=== PATIENT | female | born 1985 | race Caucasian/White ===

== ENCOUNTER 2017-07-03 11:36 | Inpatient (IN) | payer OTHER ==
[2017-07-03 12:27] VITALS: BMI 27.2
--- NOTE | 2017-07-03 14:25 | HP ---
CIWA Score - CIWA Score Nausea/Vomitin-No Nausea/No Vomiting Muscle Tremors: 4-Moderate,w/Arms Extend Anxiety: 4-Mod. Anxious/Guarded Agitation: 4-Moderately Restless Paroxysmal Sweats: 1-Minimal Palms Moist Orientation: 0-Oriented Tacttile Disturbances: 3-Moderate Itch/Numb/Burn Auditory Disturbances: 0-None Visual Disturbances: 0-None Headache: 0-None Present CIWA-Ar Total Score: 16 Admission ROS S - HPI Chief Complaint: WITHDRAWAL SX FROM ALCOHOL Allergies/Adverse Reactions: Allergies Allergy/AdvReac Type Severity Reaction Status Date / Time chlordiazepoxide Allergy Severe Itching Verified 07/03/17 13:05 [From Librium] History of Present Illness: 32 Y/O FEMALE WITH A HX OF ALCOHOL,KONOPIN, COCAINE DEPENDENCE ON MMTP SEEKING DETOX [place]. Exam Limitations: No Limitations - Ebola screening Have you traveled outside of the country in the last 21 days: No (N) Have you had contact with anyone from an Ebola affected area: No Have you been sick,other than usual withdrawal symptoms: No Do you have a fever: No - Review of Systems Constitutional: Chills, Loss of Appetite, Night Sweats EENT: reports: Tearing, Nose Congestion, Dental Problems (UPPER DENTURES) Respiratory: reports: Shortness of Breath (HX ASTHMA), Wheezing Cardiac: reports: Lightheadedness GI: reports: Constipated, Diarrhea, Nausea, Poor Appetite, Poor Fluid Intake, Vomiting : reports: Frequency Musculoskeletal: reports: Back Pain, Joint Pain, Muscle Pain Integumentary: reports: No Symptoms Reported Neuro: reports: Headache, Numbness, Seizure (DRUG WITHDRAWALS RELATED), Tingling , Tremors, Unsteady Gait (WALKS WITH A LIMP--S/P SURGERY LEFT FEMUR IN OCTOBER 2016 DUE TO FX.), Dizziness Endocrine: reports: No Symptoms Reported Hematology: reports: No Symptoms Reported Psychiatric: reports: Orientated x3, Anxious, Depressed (HX BIPOLAR DISORDER) Other Systems: Reviewed and Negative Patient History - Patient Medical History Hx Anemia: No Hx Asthma: Yes Hx Chronic Obstructive Pulmonary Disease (COPD): No Hx Cardiac Disorders: No Hx Hypertension: No Hx Hypercholesterolemia: No Hx Seizures: Yes (drug related-last episode was in 2014) Hx Diabetes: No Hx Gastrointestinal Disorders: No Hx Genitourinary Disorders: No Hx Sexually Transmitted Disorders: Yes (vaginal warts) Hx Renal Disease (ESRD): No Hx Thyroid Disease: No Hx Human Immunodeficiency Virus (HIV): No (NEGATIVE HX) Hx Depression: Yes Hx Suicide Attempt: No (WRIST/LEG CUTTING IN 2012;DENIES S/I TODAY.) Hx Schizophrenia: No - Patient Surgical History Past Surgical History: Yes Hx Neurologic Surgery: No Hx Cataract Extraction: No Hx Cardiac Surgery: No Hx Lung Surgery: No Hx Breast Surgery: No Hx Breast Biopsy: No Hx Abdominal Surgery: No ( x4) Hx Appendectomy: No Hx Cholecystectomy: No Hx Genitourinary Surgery: No Hx Section: No Hx Orthopedic Surgery: Yes (fx, left femur (fall) in 10/2016) Anesthesia Reaction: No - PPD History Previous Implant?: Yes Documented Results: Negative w/o proof Implanted On Prior [facility] Admission?: No PPD to be Administered?: Yes - Reproductive History Patient is a Female of Child Bearing Age (11 -55 yrs old): Yes Last Menstrual Period: 06/14/17 Patient : No - Smoking Cessation Smoking history: Current every day smoker Have you smoked in the past 12 months: Yes Aproximately how many cigarettes per day: 10 Hx Chewing Tobacco Use: No Initiated information on smoking cessation: Yes 'Breaking Loose' booklet given: 07/03/17 - Substance & Tx. History Hx Alcohol Use: Yes (BEER) Hx Substance Use: Yes (COCAINE/XANAX/KLONOPIN) Substance Use Type: Alcohol, Cocaine, Tranquilizers Hx Substance Use Treatment: Yes (CURRENTLY IN [facility]) - Substances Abused Cocaine Route: Injection Frequency: Daily Amount used: $40-50 Age of first use: 19 Date of Last Use: 07/02/17 Alcohol-beer Route: Oral Frequency: Daily Amount used: 4 (24 oz.) Age of first use: 18 Date of Last Use: 07/03/17 Xanax/or Klonopin Route: Oral Frequency: Daily Amount used: 8-12 mg. Age of first use: 22 Date of Last Use: 07/03/17 Family Disease History - Family Disease History Family History: Denies Admission Physical Exam BHS - Vital Signs Vital Signs: Vital Signs - 24 hr 07/03/17 12:24 Temperature 96.1 F L Pulse Rate 78 Respiratory 18 Rate Blood Pressure 117/82 - Physical General Appearance: Yes: Moderate Distress, Irritable, Anxious HEENTM: Yes: EOMI, Normocephalic, CONY, Pharynx Normal Respiratory: Yes: Chest Non-Tender, Lungs Clear, Normal Breath Sounds, No Respiratory Distress Neck: Yes: No masses,lesions,Nodules, Supple, Trachea in good position Breast: Yes: Breast Exam Deferred Cardiology: Yes: Regular Rhythm, Regular Rate, S1, S2 Abdominal: Yes: Normal Bowel Sounds, Non Tender, Soft Genitourinary: Yes: Other (N/C) Back: Yes: Within Normal Limits Musculoskeletal: Yes: full range of Motion, Gait Steady Extremities: Yes: Normal Range of Motion, Non-Tender 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, Fully Oriented, Alert Integumentary: Yes: Dry, Warm Lymphatic: Yes: Within Normal Limits - Diagnostic (1) Methadone maintenance therapy patient Current Visit: Yes Status: Chronic (2) Sedative, hypnotic or anxiolytic dependence with withdrawal, uncomplicated Current Visit: Yes Status: Acute (3) Alcohol dependence with uncomplicated withdrawal Current Visit: Yes Status: Acute (4) Cocaine dependence, uncomplicated Current Visit: Yes Status: Acute (5) Withdrawal seizures Current Visit: Yes Status: Suspected Qualifiers: Complication of substance-induced condition: uncomplicated Qualified Code(s ): F19.230 - Other psychoactive substance dependence with withdrawal, uncomplicated (6) History of genital warts Current Visit: Yes Status: Chronic (7) Asthma Current Visit: Yes Status: Chronic Qualifiers: Asthma severity: unspecified severity Asthma persistence: unspecified Asthma complication type: uncomplicated Qualified Code(s): J45.909 - Unspecified asthma, uncomplicated Cleared for Admission [facility] - Detox or Rehab [facility] Level of Care: Medically Managed Detox Regimen/Protocol: Valium [facility] Breath Alcohol Content Breath Alcohol Content: 0 Urine Pregancy Test - Result Urine Test Results: Negative- NO Line Present Urine Drug Screen - Results Drug Screen Negative: No Urine Drug Screen Results: AVIVA-Cocaine, BZO-Benzodiazepines, MTD-Methadone, OXY- Oxycodone
[2017-07-03] MEDS ORDERED: MAG HYDROX/AL HYDROX/SIMETH 30 ML UNIT-DOSE CUP PO PRN (14:45)
[2017-07-03] MEDS ORDERED: MAGNESIUM CITRATE 300 ML BOTTLE PO PRN (14:45)
[2017-07-03] MEDS ORDERED: guaiFENesin/D-METHORPHAN HB 10 ML UNIT-DOSE CUPS PO PRN (14:45)
[2017-07-03] MEDS ORDERED: MENTHOL/PHENOL 1 EACH UD MM PRN (14:45)
[2017-07-03] MEDS ORDERED: LOPERAMIDE HCL 2 MG CAPSULE PO PRN (14:45)
[2017-07-03] MEDS ORDERED: NICOTINE POLACRILEX 2 MG GUM BUC PRN (14:45)
[2017-07-03] MEDS ORDERED: MAGNESIUM HYDROX 2400MG/30ML ORAL SUSPENSION 30 ML CUP PO PRN (14:45)
[2017-07-03] MEDS ORDERED: IBUPROFEN 400 MG TABLET (FP) PO PRN (14:45)
[2017-07-03] MEDS ORDERED: P-EPHED 60MG/TRIPROLIDI 2.5MG TABLET PO PRN (14:45)
[2017-07-03] MEDS ORDERED: diazePAM 5 MG TABLET PO ONE (14:45)
[2017-07-03] MEDS ORDERED: ALBUTEROL SO4 18 GM HFA INHALER IH PRN (14:49)
[2017-07-03] MEDS: NICOTINE 14 MG/24 HOURS TOPICAL PATCH TD SCH (17:03)
[2017-07-03 17:34] LABS: MCH 29.2 pg (25.7-33.7); MEAN CELL VOLUME 91.1 fl (80-96); MEAN PLT VOLUME 9.2 fl (7.5-11.1); PLATELET COUNT 225 K/MM3 (134-434); RDW 19.5 % (11.6-15.6)
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
[2017-07-03 17:47] LABS: ALBUMIN 3.9 g/dl (3.4-5.0); ANION GAP 8 (8-16); BILIRUBIN,TOTAL 0.7 mg/dL (0.2-1.0); CALCIUM 9.2 mg/dL (8.5-10.1); CO2 27 mmol/L (21-32); GLUCOSE,RANDOM 99 mg/dL (74-106); SGOT/AST 45 U/L (15-37); SGPT/ALT 61 U/L (12-78); TOT PROT 8.2 g/dl (6.4-8.2)
[2017-07-03 17:48] LABS: ALK PHOS 253 U/L (45-117)
[2017-07-03 21:30] LABS: URINE APPEARANCE SLCLOUDY; URINE BILIRUBIN NEGATIVE (NEGATIVE); URINE BLOOD NEGATIVE (NEGATIVE); URINE COLOR YELLOW; URINE GLUCOSE (UA) NEGATIVE (NEGATIVE); URINE KETONE NEGATIVE (NEGATIVE); URINE NITRITE NEGATIVE (NEGATIVE); URINE PROTEIN NEGATIVE (NEGATIVE)
[2017-07-03 21:31] LABS: URINE LEUK ESTERASE 3+ (NEGATIVE)
[2017-07-03 21:40] LABS: URINE MUCUS MODERATE; URINE RBC 5 /hpf (0-3); URINE WBC 28 /hpf (3-5)
[2017-07-03] MEDS: busPIRone HCL 10 MG TABLET (FP) PO SCH (22:16)
[2017-07-03] MEDS: diazePAM 5 MG TABLET PO SCH (22:16)
[2017-07-03] MEDS: THIAMINE HCL 100 MG TABLET (FP) PO SCH (22:16)
[2017-07-03] MEDS: MONTELUKAST NA 10 MG TABLET PO SCH (22:17)
[2017-07-03] MEDS: ZOLPIDEM TARTRATE 5 MG TABLET PO PRN (22:17)
[2017-07-03 22:52] LABS: URINE LEUK ESTERASE 2+ (NEGATIVE)
[2017-07-04] MEDS ORDERED: METHADONE HCL 40 MG DISPERSABLE TABLET ONE (04:51)
[2017-07-04] MEDS ORDERED: METHADONE HCL 10 MG TABLET ONE (04:51)
[2017-07-04] MEDS: diazePAM 5 MG TABLET PO SCH ×3 (05:24→22:22)
[2017-07-04] MEDS: METHADONE 80 MG, METHADONE 30 MG PO SCH (05:24)
[2017-07-04] MEDS ORDERED: METHADONE HCL 10 MG TABLET PO SCH (06:00)
[2017-07-04] MEDS: busPIRone HCL 10 MG TABLET (FP) PO SCH ×2 (10:49→22:22)
[2017-07-04] MEDS: PRENATAL VITAMINS W/ FOLIC ACID TABLET (FP) PO SCH (10:49)
[2017-07-04] MEDS: NICOTINE 14 MG/24 HOURS TOPICAL PATCH TD SCH (10:49)
--- NOTE | 2017-07-04 11:00 | PN ---
S CIWA - CIWA Score Nausea/Vomitin Muscle Tremors: 2 Anxiety: 3 Agitation: 2 Paroxysmal Sweats: 3 Orientation: 0-Oriented Tacttile Disturbances: 2-Mild Itch/Numbness/Burn Auditory Disturbances: 0-None Visual Disturbances: 0-None Headache: 0-None Present CIWA-Ar Total Score: 14 S Progress Note (SOAP) Subjective: interrupted sleep, sweats, muscle cramps, vag.yeast infection Objective: 07/04/17 10:58 Vital Signs Temperature 97.7 F 07/04/17 10:00 Pulse Rate 79 07/04/17 10:00 Respiratory Rate 18 07/04/17 10:00 Blood Pressure 117/83 07/04/17 10:00 O2 Sat by Pulse Oximetry (%) Laboratory Tests 07/03/17 07/03/17 07/03/17 15:00 15:00 15:00 WBC 5.0 RBC 3.95 Hgb 11.5 Hct 36.0 MCV 91.1 MCH 29.2 MCHC 32.0 RDW 19.5 H Plt Count 225 MPV 9.2 Sodium 141 Potassium 3.7 Chloride 106 Carbon Dioxide 27 Anion Gap 8 BUN 9 Creatinine 1.0 Creat Clearance w eGFR > 60 Random Glucose 99 Calcium 9.2 Total Bilirubin 0.7 AST 45 H ALT 61 Alkaline Phosphatase 253 H Total Protein 8.2 Albumin 3.9 Urine Color Urine Appearance Urine pH Ur Specific [place] Urine Protein Urine Glucose (UA) Urine Ketones Urine Blood Urine Nitrite Urine Bilirubin Urine Urobilinogen Ur Leukocyte Esterase Urine WBC (Auto) Urine RBC (Auto) Ur Epithelial Cells Urine Mucus RPR Titer Nonreactive 07/03/17 21:00 WBC RBC Hgb Hct MCV MCH MCHC RDW Plt Count MPV Sodium Potassium Chloride Carbon Dioxide Anion Gap BUN Creatinine Creat Clearance w eGFR Random Glucose Calcium Total Bilirubin AST ALT Alkaline Phosphatase Total Protein Albumin Urine Color Yellow Urine Appearance Slcloudy Urine pH 6.0 Ur Specific [place] 1.016 Urine Protein Negative Urine Glucose (UA) Negative Urine Ketones Negative Urine Blood Negative Urine Nitrite Negative Urine Bilirubin Negative Urine Urobilinogen 2.0 H Ur Leukocyte Esterase 2+ H Urine WBC (Auto) 28 Urine RBC (Auto) 5 Ur Epithelial Cells Few Urine Mucus Moderate RPR Titer pt aox 3 in nad ambulating Assessment: 07/04/17 10:59 jose vanessamat's yeast infection -vaginal muscle cramps Plan: cont. detox increase fluids diflucan 150mg x 1 flexeril tid.
[2017-07-04] MEDS ORDERED: FLUCONAZOLE 50 MG TABLET PO ONE (11:04)
[2017-07-04] MEDS ORDERED: CYCLOBENZAPRINE HCL 5 MG TABLET PO ONE (11:17)
--- NOTE | 2017-07-04 13:02 | EKG ---
Test Reason : Blood Pressure : / mmHG Vent. Rate : 068 BPM Atrial Rate : 068 BPM P-R Int : 120 ms QRS Dur : 092 ms QT Int : 450 ms P-R-T Axes : 040 066 047 degrees QTc Int : 478 ms NORMAL SINUS RHYTHM NORMAL ECG NO PREVIOUS ECGS AVAILABLE Confirmed by ISAIAS LEAL MD ([id number]) on 07/04/2017 1:02:24 PM Referred By: Michoacano KHANNA Confirmed By:ISAIAS LEAL MD
[2017-07-04] MEDS: CYCLOBENZAPRINE HCL 5 MG TABLET PO SCH ×2 (13:22→22:22)
[2017-07-04] MEDS: MONTELUKAST NA 10 MG TABLET PO SCH (22:22)
[2017-07-04] MEDS: ZOLPIDEM TARTRATE 5 MG TABLET PO PRN (22:22)
[2017-07-04] MEDS: THIAMINE HCL 100 MG TABLET (FP) PO SCH (22:22)
[2017-07-05] MEDS ORDERED: METHADONE HCL 10 MG TABLET ONE (04:39)
[2017-07-05] MEDS ORDERED: METHADONE HCL 40 MG DISPERSABLE TABLET ONE (04:39)
[2017-07-05] MEDS: CYCLOBENZAPRINE HCL 5 MG TABLET PO SCH ×3 (05:19→22:35)
[2017-07-05] MEDS: METHADONE 80 MG, METHADONE 30 MG PO SCH (05:20)
[2017-07-05] MEDS: diazePAM 5 MG TABLET PO PRN ×3 (05:55→17:52)
[2017-07-05] MEDS: busPIRone HCL 10 MG TABLET (FP) PO SCH ×2 (10:27→22:36)
[2017-07-05] MEDS: diazePAM 5 MG TABLET PO SCH ×2 (10:28→22:36)
[2017-07-05] MEDS: PRENATAL VITAMINS W/ FOLIC ACID TABLET (FP) PO SCH (10:28)
[2017-07-05] MEDS: NICOTINE 14 MG/24 HOURS TOPICAL PATCH TD SCH (10:28)
[2017-07-05] MEDS ORDERED: VITAMINS A AND D TOPICAL OINTMENT 60 GM TUBE TP SCH (10:45)
[2017-07-05] MEDS: ACETAMINOPHEN 325 MG TABLET (FP) PO PRN ×2 (12:56→22:35)
[2017-07-05] MEDS: BACITRACIN 0.9 GM PACKET TP SCH ×2 (12:56→22:36)
--- NOTE | 2017-07-05 13:09 | EKG ---
Test Reason : Blood Pressure : / mmHG Vent. Rate : 071 BPM Atrial Rate : 071 BPM P-R Int : 110 ms QRS Dur : 088 ms QT Int : 398 ms P-R-T Axes : 007 050 026 degrees QTc Int : 432 ms SINUS RHYTHM WITH SHORT PA OTHERWISE NORMAL ECG WHEN COMPARED WITH ECG OF 03-JUL-2017 17:16, T WAVE AMPLITUDE HAS DECREASED IN ANTERIOR LEADS Confirmed by LIANE PADILLA MD ([id number]) on 07/05/2017 1:09:30 PM Referred By: Confirmed By:LIANE PADILLA MD
--- NOTE | 2017-07-05 16:20 | PN ---
[facility] Progress Note Note: Psychiatric nurse practitioner note: Pt. seen bedside in reference to switching of medications. Seroquel 50mg qhs was not ordered on 07/03/2017 due to prolong qtc of 478. EKG reordered and QTC was 432 on 07/05/2017. Pt. requesting to resume seroquel 50mg qhs for insomnia. Ambien 5mg to be discontinued and Seroquel 50mg qhs to be ordered for insomnia. Benefits and side effects discussed. Verbal consent given. Pt. agreeable with plan. Will continue to monitor patient.
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
[2017-07-05] MEDS: QUEtiapine FUMARATE 50 MG TABLET PO SCH (22:35)
[2017-07-05] MEDS: MONTELUKAST NA 10 MG TABLET PO SCH (22:35)
[2017-07-05] MEDS: THIAMINE HCL 100 MG TABLET (FP) PO SCH (23:22)
[2017-07-06] MEDS ORDERED: METHADONE HCL 10 MG TABLET ONE (05:39)
[2017-07-06] MEDS ORDERED: METHADONE HCL 40 MG DISPERSABLE TABLET ONE (05:39)
[2017-07-06] MEDS: CYCLOBENZAPRINE HCL 5 MG TABLET PO SCH ×3 (05:50→22:25)
[2017-07-06] MEDS: METHADONE 80 MG, METHADONE 30 MG PO SCH (05:50)
[2017-07-06] MEDS: diazePAM 5 MG TABLET PO PRN ×2 (05:53→14:43)
[2017-07-06] MEDS: BACITRACIN 0.9 GM PACKET TP SCH ×2 (10:49→23:28)
[2017-07-06] MEDS: busPIRone HCL 10 MG TABLET (FP) PO SCH ×2 (10:49→22:24)
[2017-07-06] MEDS: PRENATAL VITAMINS W/ FOLIC ACID TABLET (FP) PO SCH (10:49)
[2017-07-06] MEDS: NICOTINE 14 MG/24 HOURS TOPICAL PATCH TD SCH (10:50)
[2017-07-06] MEDS: ACETAMINOPHEN 325 MG TABLET (FP) PO PRN (10:50)
[2017-07-06] MEDS: diazePAM 5 MG TABLET PO SCH ×2 (10:50→22:25)
--- NOTE | 2017-07-06 16:02 | PN ---
[facility] Progress Note (SOAP) Subjective: Anxious, sweating, interrupted sleep Objective: 07/06/17 15:59 Last Vital Signs Temp Pulse Resp BP Pulse Ox 97.9 F 99 H 18 122/76 07/06/17 14:49 07/06/17 14:49 07/06/17 14:49 07/06/17 14:49 Laboratory Tests 07/03/17 07/03/17 07/03/17 15:00 15:00 15:00 WBC 5.0 RBC 3.95 Hgb 11.5 Hct 36.0 MCV 91.1 MCH 29.2 MCHC 32.0 RDW 19.5 H Plt Count 225 MPV 9.2 Sodium 141 Potassium 3.7 Chloride 106 Carbon Dioxide 27 Anion Gap 8 BUN 9 Creatinine 1.0 Creat Clearance w eGFR > 60 Random Glucose 99 Calcium 9.2 Total Bilirubin 0.7 AST 45 H ALT 61 Alkaline Phosphatase 253 H Total Protein 8.2 Albumin 3.9 Urine Color Urine Appearance Urine pH Ur Specific [place] Urine Protein Urine Glucose (UA) Urine Ketones Urine Blood Urine Nitrite Urine Bilirubin Urine Urobilinogen Ur Leukocyte Esterase Urine WBC (Auto) Urine RBC (Auto) Ur Epithelial Cells Urine Mucus RPR Titer Nonreactive 07/03/17 21:00 WBC RBC Hgb Hct MCV MCH MCHC RDW Plt Count MPV Sodium Potassium Chloride Carbon Dioxide Anion Gap BUN Creatinine Creat Clearance w eGFR Random Glucose Calcium Total Bilirubin AST ALT Alkaline Phosphatase Total Protein Albumin Urine Color Yellow Urine Appearance Slcloudy Urine pH 6.0 Ur Specific [place] 1.016 Urine Protein Negative Urine Glucose (UA) Negative Urine Ketones Negative Urine Blood Negative Urine Nitrite Negative Urine Bilirubin Negative Urine Urobilinogen 2.0 H Ur Leukocyte Esterase 2+ H Urine WBC (Auto) 28 Urine RBC (Auto) 5 Ur Epithelial Cells Few Urine Mucus Moderate RPR Titer Labs noted Assessment: 07/06/17 16:00 Withdrawal symptoms Plan: Continue detox Encouraged to drink lots of water
[2017-07-06] MEDS: THIAMINE HCL 100 MG TABLET (FP) PO SCH (22:24)
[2017-07-06] MEDS: QUEtiapine FUMARATE 50 MG TABLET PO SCH (22:24)
[2017-07-06] MEDS: MONTELUKAST NA 10 MG TABLET PO SCH (22:25)
[2017-07-07] MEDS ORDERED: METHADONE HCL 40 MG DISPERSABLE TABLET ONE (03:54)
[2017-07-07] MEDS ORDERED: METHADONE HCL 10 MG TABLET ONE (03:54)
[2017-07-07] MEDS: METHADONE 80 MG, METHADONE 30 MG PO SCH (05:40)
[2017-07-07] MEDS: CYCLOBENZAPRINE HCL 5 MG TABLET PO SCH (05:40)
[2017-07-07 06:35] VITALS: BP 115/58; PULSE 114; TEMP 98.4
[2017-07-07] MEDS ORDERED: diazePAM 5 MG TABLET PO SCH (10:00)
== END 2017-07-07 07:48 | disposition home or self-care (01) | DRG 773 ==
LOC: YASAS 11:36 → Y6N 14:36
PROVIDERS: ADMIT Internal Medicine; ATTEND Internal Medicine
PROC: HZ2ZZZZ Detoxification Services for Substance Abuse Treatment (ICD-10-PCS; principal; 2017-07-03)
DX: F13.230 Sedative, hypnotic or anxiolytic dependence with withdrawal, uncomplicated (principal); F11.20 Opioid dependence, uncomplicated; F10.230 Alcohol dependence with withdrawal, uncomplicated; F14.20 Cocaine dependence, uncomplicated; F17.210 Nicotine dependence, cigarettes, uncomplicated; F33.9 Major depressive disorder, recurrent, unspecified; F41.9 Anxiety disorder, unspecified; F31.9 Bipolar disorder, unspecified; J45.909 Unspecified asthma, uncomplicated; B37.3 Candidiasis of vulva and vagina; R25.2 Cramp and spasm; G47.00 Insomnia, unspecified; B18.2 Chronic viral hepatitis C; Z86.69 Personal history of other diseases of the nervous system and sense organs; Z88.8 Allergy status to other drugs, medicaments and biological substances; Z86.19 Personal history of other infectious and parasitic diseases; Z91.5 Personal history of self-harm
CPT/HCPCS: 36415; 80053; 81003; 81015; 85027; 86593; 93005; 93010

== ENCOUNTER 2022-04-07 22:12 | Inpatient (IN) | payer OTHER ==
[2022-04-07] MEDS ORDERED: SODIUM CHLORIDE 1,000 ML IV STA (23:28)
[2022-04-07] MEDS ORDERED: DALBAVANCIN HCL 1,500 MG in DEXTROSE 5%-WATER - 500 ML IVPB ONE (23:33)
[2022-04-07] MEDS ORDERED: DALBAVANCIN HCL 500 MG VIAL (RESTRICTED TO ID ONLY) IVPB ONE (23:56)
[2022-04-08] MEDS ORDERED: VANCOMYCIN 1 GM in D5W (PRE-DOCKED) 1,000 MG/250 ML IVPB ONE (00:38)
[2022-04-08 00:45] LABS: BASO % 0.6 % (0-2.0); EOS % 10.6 % (0-4.5); HEMATOCRIT 33.9 % (32.4-45.2); LYMPH % 37.4 % (8-40); MCH 31.1 pg (25.7-33.7); MCHC 32.4 g/dl (32.0-36.0); MEAN PLT VOLUME 7.5 fl (7.5-11.1); MONO % 12.4 % (3.8-10.2); PLATELET COUNT 296 10^3/uL (134-434); RBC 3.53 M/mm3 (3.60-5.2); RDW 15.5 % (11.6-15.6); WHITE BLOOD COUNT 5.2 K/mm3 (4.0-10.0)
[2022-04-08] MEDS ORDERED: VANCOMYCIN/WATER FOR INJ (PEG) 1,000 MG/200 ML BAG IVPB ONE (00:48)
[2022-04-08 01:00] LABS: CHLORIDE 107 mmol/L (98-107); SODIUM 141 mmol/L (136-145)
[2022-04-08 01:02] LABS: ALBUMIN 3.5 g/dl (3.4-5.0); ANION GAP 5 MMOL/L (8-16); BLOOD UREA NITROGEN 21.9 mg/dL (7-18); CALCIUM 9.1 mg/dL (8.5-10.1); CO2 29 mmol/L (21-32); GLUCOSE,RANDOM 78 mg/dL (74-106)
[2022-04-08 01:04] LABS: CREATININE 0.7 mg/dL (0.55-1.3); SGOT/AST 32 U/L (15-37); SGPT/ALT 22 U/L (13-61)
[2022-04-08 01:06] LABS: BILIRUBIN,TOTAL 0.5 mg/dL (0.2-1); TOT PROT 8.6 g/dl (6.4-8.2)
[2022-04-08 01:07] LABS: ALK PHOS 168 U/L (45-117)
[2022-04-08] MEDS ORDERED: cloNIDine HCL 0.1 MG TABLET PO PRN (03:48)
[2022-04-08] MEDS ORDERED: ACETAMINOPHEN 325 MG TABLET (FP) PO PRN (03:52)
[2022-04-08] MEDS ORDERED: methaDONE HCL 10 MG TABLET PO ONE (04:30)
[2022-04-08] MEDS ORDERED: ZOLPIDEM TARTRATE 5 MG TABLET PO PRN (04:31)
[2022-04-08] MEDS ORDERED: methaDONE HCL 10 MG TABLET ONE (04:31)
[2022-04-08] MEDS ORDERED: ALBUTEROL SO4 0.083% IH SOL 2.5 MG/3 ML VIAL.NEB. NEB ONE (06:25)
[2022-04-08 08:01] LABS: BASO % 0.5 % (0-2.0); EOS % 7.6 % (0-4.5); HEMOGLOBIN 10.3 GM/dL (10.7-15.3); LYMPH % 22.6 % (8-40); MCH 30.4 pg (25.7-33.7); MEAN CELL VOLUME 94.9 fl (80-96); MEAN PLT VOLUME 7.9 fl (7.5-11.1); NEUT % 59.3 % (42.8-82.8); PLATELET COUNT 310 10^3/uL (134-434); RBC 3.37 M/mm3 (3.60-5.2); RDW 15.3 % (11.6-15.6); WHITE BLOOD COUNT 5.8 K/mm3 (4.0-10.0)
[2022-04-08 08:19] VITALS: BMI 23.6
[2022-04-08 08:28] LABS: ALBUMIN 3.1 g/dl (3.4-5.0); BLOOD UREA NITROGEN 16.5 mg/dL (7-18)
[2022-04-08 08:30] LABS: CREATININE 0.7 mg/dL (0.55-1.3); PHOSPHOROUS 3.2 mg/dL (2.5-4.9)
[2022-04-08 08:31] LABS: BILIRUBIN,TOTAL 0.6 mg/dL (0.2-1); TOT PROT 7.6 g/dl (6.4-8.2)
[2022-04-08 08:41] LABS: URINE APPEARANCE CLEAR; URINE BILIRUBIN NEGATIVE (NEGATIVE); URINE COLOR YELLOW; URINE GLUCOSE (UA) NEGATIVE (NEGATIVE); URINE KETONE NEGATIVE (NEGATIVE); URINE LEUK ESTERASE NEGATIVE (NEGATIVE); URINE NITRITE NEGATIVE (NEGATIVE); URINE PROTEIN NEGATIVE (NEGATIVE)
[2022-04-08 08:52] LABS: URINE BARBITURATES NEGATIVE (NEGATIVE)
[2022-04-08 08:53] LABS: PHENCYCLIDINE,URINE NEGATIVE (NEGATIVE); URINE AMPHETAMINES NEGATIVE (NEGATIVE)
[2022-04-08 09:27] LABS: COCAINE, UR POSITIVE (NEGATIVE); METHADONE, UR POSITIVE (NEGATIVE); OPIATES, URI POSITIVE (NEGATIVE); URINE BENZODIAZEPINES POSITIVE (NEGATIVE)
[2022-04-08] MEDS ORDERED: VANCOMYCIN 1 GM in D5W (PRE-DOCKED) 1,000 MG/250 ML IVPB SCH (10:00)
[2022-04-08] MEDS: clonazePAM 0.5 MG TABLET PO SCH (10:26)
[2022-04-08] MEDS: DIVALPROEX NA *ER* EXTEND REL 500 MG TABLET.SA (FP) PO SCH (10:26)
[2022-04-08] MEDS: SENNOSIDES 8.6MG TABLET (FP) PO SCH (10:27)
[2022-04-08] MEDS: ENOXAPARIN NA (PORCINE) 40 MG/0.4 ML DISP.SYRIN SQ SCH (11:27)
[2022-04-08] MEDS ORDERED: ALBUTEROL SO4 2.5/IPRATROPIUM 0.5 INH SOL 3 ML VIAL.NEB. NEB PRN (11:47)
[2022-04-08] MEDS ORDERED: ALBUTEROL SO4 HFA INHALER IH PRN (11:50)
[2022-04-08] MEDS: BUDESONIDE/FORMETEROL FUMARATE 160/4.5 mcg INHALER IH SCH ×2 (13:16→23:08)
[2022-04-08] MEDS: ALBUTEROL SO4 2.5/IPRATROPIUM 0.5 INH SOL 3 ML VIAL.NEB. NEB SCH ×3 (14:00→20:32)
[2022-04-08] MEDS: PIPERACILLIN/TAZOB 3.375 GM 3.375 GM in DEXTROSE 5%-WATER - 50 ML IVPB SCH ×3 (16:15→23:09)
[2022-04-08] MEDS: VANCOMYCIN 1 GM/200 ML PREMIX BAG IVPB SCH ×2 (16:17→17:51)
[2022-04-08] MEDS ORDERED: NALOXONE HCL 0.4 MG/ML VIAL IVPUSH ONE (16:46)
[2022-04-08 20:55] LABS: PHENCYCLIDINE,URINE NEGATIVE (NEGATIVE); URINE BARBITURATES NEGATIVE (NEGATIVE); URINE BENZODIAZEPINES NEGATIVE (NEGATIVE)
[2022-04-08 21:17] LABS: COCAINE, UR POSITIVE (NEGATIVE); METHADONE, UR POSITIVE (NEGATIVE); OPIATES, URI POSITIVE (NEGATIVE); URINE AMPHETAMINES NEGATIVE (NEGATIVE)
[2022-04-09] MEDS: clonazePAM 0.5 MG TABLET PO SCH ×2 (01:21→11:08)
[2022-04-09] MEDS: PIPERACILLIN/TAZOB 3.375 GM 3.375 GM in DEXTROSE 5%-WATER - 50 ML IVPB SCH ×2 (02:30→11:11)
[2022-04-09] MEDS: VANCOMYCIN 1 GM/200 ML PREMIX BAG IVPB SCH (03:14)
[2022-04-09 08:17] VITALS: BP 124/82; PULSE 98; RESP 16; TEMP 97.9
[2022-04-09] MEDS ORDERED: methaDONE HCL 10 MG TABLET (FOR DETOX USE ONLY) PO ONE (10:30)
[2022-04-09] MEDS ORDERED: methaDONE HCL 10 MG TABLET PO ONE (10:30)
[2022-04-09] MEDS: SENNOSIDES 8.6MG TABLET (FP) PO SCH (11:10)
[2022-04-09] MEDS: DIVALPROEX NA *ER* EXTEND REL 500 MG TABLET.SA (FP) PO SCH (11:10)
[2022-04-09] MEDS: ALBUTEROL SO4 2.5/IPRATROPIUM 0.5 INH SOL 3 ML VIAL.NEB. NEB SCH ×2 (11:11→12:21)
[2022-04-09] MEDS: BUDESONIDE/FORMETEROL FUMARATE 160/4.5 mcg INHALER IH SCH (11:11)
[2022-04-09] MEDS: ENOXAPARIN NA (PORCINE) 40 MG/0.4 ML DISP.SYRIN SQ SCH (11:11)
[2022-04-09] MEDS ORDERED: VANCOMYCIN 1 GM/200 ML PREMIX BAG IVPB SCH (13:00)
[2022-04-09] MEDS ORDERED: PIPERACILLIN/TAZOB 3.375 GM 3.375 GM in DEXTROSE 5%-WATER - 50 ML IVPB SCH ×2 (15:00→18:00)
[2022-04-10] MEDS ORDERED: methaDONE HCL 10 MG TABLET PO ONE (10:00)
[2022-04-12] MEDS ORDERED: methaDONE HCL 10 MG TABLET PO ONE (10:00)
[2022-04-12 19:10] LABS: HCV RNA GENOTYPE 1a (.)
== END 2022-04-09 14:50 | disposition left against medical advice (07) | DRG 383 ==
LOC: JER 22:12 → JERBED 04-08 03:17 → J5S 04-08 05:17
PROVIDERS: ADMIT Internal Medicine; ATTEND Internal Medicine
DX: L03.116 Cellulitis of left lower limb (principal); F11.10 Opioid abuse, uncomplicated; B19.20 Unspecified viral hepatitis C without hepatic coma; E11.9 Type 2 diabetes mellitus without complications; L03.113 Cellulitis of right upper limb; F17.210 Nicotine dependence, cigarettes, uncomplicated; G47.00 Insomnia, unspecified; J45.909 Unspecified asthma, uncomplicated; L03.115 Cellulitis of right lower limb
CPT/HCPCS: 0241U-QW; 36415; 71045-TC-FY; 73590-TC-LT-FY; 73590-TC-RT-FY; 80053; 80307; 81003; 83735; 84100; 84484; 84703; 85025; 86682; 86705; 87040; 87340; 87517; 87902; 93005; 93010; 94640; 99285-25

== ENCOUNTER 2022-08-22 14:12 | Emergency (ER) | payer OTHER ==
[2022-08-22] MEDS ORDERED: ONDANSETRON 4 MG/2 ML VIAL IVPUSH ONE (14:19)
[2022-08-22] MEDS ORDERED: NALOXONE HCL 0.4 MG/ML VIAL IVPUSH ONE (14:19)
[2022-08-22] MEDS ORDERED: SODIUM CHLORIDE 0.9% 1000 ML INFUS.BAG IV ONE (14:19)
[2022-08-22 14:34] VITALS: TEMP 98; BMI 19.7
[2022-08-22 14:42] LABS: BASO % 0.4 % (0-2.0); EOS % 9.1 % (0-4.5); HEMATOCRIT 32.3 % (32.4-45.2); HEMOGLOBIN 10.5 GM/dL (10.7-15.3); LYMPH % 40.2 % (8-40); MCH 30.2 pg (25.7-33.7); MCHC 32.4 g/dl (32.0-36.0); MEAN CELL VOLUME 93.2 fl (80-96); MEAN PLT VOLUME 9.3 fl (7.5-11.1); MONO % 16.8 % (3.8-10.2); NEUT % 33.5 % (42.8-82.8); PLATELET COUNT 216 10^3/uL (134-434); RBC 3.47 M/mm3 (3.60-5.2); RDW 15.6 % (11.6-15.6); WHITE BLOOD COUNT 7.9 K/mm3 (4.0-10.0)
[2022-08-22 15:01] LABS: ACTIVATED PTT 37.9 SECONDS (25.2-36.5); CHLORIDE 103 mmol/L (98-107); INR 1.12 (0.83-1.09); SODIUM 135 mmol/L (136-145)
[2022-08-22 15:03] LABS: ANION GAP 7 MMOL/L (8-16); BLOOD UREA NITROGEN 37.5 mg/dL (7-18); CALCIUM 9.3 mg/dL (8.5-10.1); CO2 26 mmol/L (21-32)
[2022-08-22 15:05] LABS: ALBUMIN 3.5 g/dl (3.4-5.0); GLUCOSE,RANDOM 93 mg/dL (74-106); MAGNESIUM 2.3 mg/dL (1.8-2.4)
[2022-08-22 15:07] LABS: CREATININE 1.2 mg/dL (0.55-1.3); SGOT/AST 50 U/L (15-37); SGPT/ALT 23 U/L (13-61)
[2022-08-22 15:08] LABS: BILIRUBIN,TOTAL 0.8 mg/dL (0.2-1); TOT PROT 8.9 g/dl (6.4-8.2)
[2022-08-22 15:10] LABS: ALK PHOS 154 U/L (45-117)
[2022-08-22 16:41] VITALS: BP 122/75; PULSE 95; RESP 20
== END 2022-08-22 16:43 | disposition left against medical advice (07) ==
LOC: JER 14:12 → MERGE 14:12 → EDBD 14:12 → JER 16:43
PROC: 3E033NZ Introduction of Analgesics, Hypnotics, Sedatives into Peripheral Vein, Percutaneous Approach (ICD-10-PCS; principal; 2022-08-22)
PROC: 3E033GC Introduction of Other Therapeutic Substance into Peripheral Vein, Percutaneous Approach (ICD-10-PCS; 2022-08-22)
DX: T40.2X4A Poisoning by other opioids, undetermined, initial encounter (principal); F19.10 Other psychoactive substance abuse, uncomplicated
CPT/HCPCS: 0241U-QW; 36415; 71045-TC-FY; 80053; 80307; 83735; 84703; 85025; 85610; 85730; 99285-25

== ENCOUNTER 2022-08-23 13:33 | Inpatient (IN) | payer OTHER ==
[2022-08-23] MEDS ORDERED: RAPID SEQUENCE INTUBATION KIT NR ONE (13:49)
[2022-08-23] MEDS ORDERED: ETOMIDATE 40 MG/20 ML VIAL IVPUSH ONE (14:02)
[2022-08-23] MEDS ORDERED: ROCURONIUM BROMIDE 50 MG/5 ML VIAL IV ONE (14:02)
[2022-08-23] MEDS ORDERED: SODIUM CHLORIDE 0.9% 500 ML INFUS.BAG IV ONE (14:03)
[2022-08-23] MEDS ORDERED: MIDAZOLAM IN 0.9 % SOD.CHLORID 100 MG/100 ML PLAST..BAG IVPB SCH (14:15)
[2022-08-23] MEDS ORDERED: PHENYLEPHRINE HCL 10 MG/1 ML SINGLE DOSE VIAL IVPB ONE (14:21)
[2022-08-23] MEDS ORDERED: MIDAZOLAM IN 0.9 % SOD.CHLORID 1 MG/1 ML PLAST..BAG ONE (14:38)
[2022-08-23 14:51] LABS: BASO % 0.5 % (0-2.0); EOS % 16.9 % (0-4.5); HEMATOCRIT 29.7 % (32.4-45.2); HEMOGLOBIN 9.7 GM/dL (10.7-15.3); LYMPH % 37.5 % (8-40); MCH 30.3 pg (25.7-33.7); MCHC 32.7 g/dl (32.0-36.0); MEAN CELL VOLUME 92.8 fl (80-96); MEAN PLT VOLUME 9.3 fl (7.5-11.1); MONO % 12.9 % (3.8-10.2); NEUT % 32.2 % (42.8-82.8); PLATELET COUNT 193 10^3/uL (134-434); RDW 15.5 % (11.6-15.6); WHITE BLOOD COUNT 7.2 K/mm3 (4.0-10.0)
[2022-08-23 14:58] LABS: INR 1.13 (0.83-1.09); PROTHROMBIN TIME (PATIENT) 13.1 SEC (9.7-13.0)
[2022-08-23 15:00] LABS: ACTIVATED PTT 32.1 SECONDS (25.2-36.5)
[2022-08-23 15:14] LABS: CHLORIDE 100 mmol/L (98-107); SODIUM 132 mmol/L (136-145)
[2022-08-23 15:15] LABS: URINE APPEARANCE CLEAR; URINE BILIRUBIN NEGATIVE (NEGATIVE); URINE COLOR YELLOW; URINE GLUCOSE (UA) NEGATIVE (NEGATIVE); URINE KETONE NEGATIVE (NEGATIVE); URINE LEUK ESTERASE NEGATIVE (NEGATIVE); URINE NITRITE NEGATIVE (NEGATIVE); URINE PROTEIN TRACE (NEGATIVE); URINE UROBILINOGEN 0.2 mg/dL (0.2-1.0)
[2022-08-23 15:16] LABS: ALBUMIN 3.3 g/dl (3.4-5.0); ANION GAP 6 MMOL/L (8-16); BLOOD UREA NITROGEN 44.5 mg/dL (7-18); CO2 27 mmol/L (21-32); GLUCOSE,RANDOM 106 mg/dL (74-106); MAGNESIUM 2.7 mg/dL (1.8-2.4)
[2022-08-23 15:18] LABS: CREATININE 1.3 mg/dL (0.55-1.3); PHOSPHOROUS 4.2 mg/dL (2.5-4.9); SGPT/ALT 23 U/L (13-61)
[2022-08-23 15:20] LABS: BILIRUBIN,TOTAL 0.7 mg/dL (0.2-1); SGOT/AST 30 U/L (15-37); TOT PROT 8.4 g/dl (6.4-8.2)
[2022-08-23 15:22] LABS: ALK PHOS 146 U/L (45-117)
[2022-08-23 15:23] LABS: PHENCYCLIDINE,URINE NEGATIVE (NEGATIVE); URINE AMPHETAMINES NEGATIVE (NEGATIVE); URINE BARBITURATES NEGATIVE (NEGATIVE)
[2022-08-23 15:32] LABS: COCAINE, UR POSITIVE (NEGATIVE); METHADONE, UR POSITIVE (NEGATIVE); OPIATES, URI POSITIVE (NEGATIVE); URINE BENZODIAZEPINES POSITIVE (NEGATIVE)
[2022-08-23] MEDS ORDERED: PANTOPRAZOLE SODIUM 40 MG VIAL ONE (15:35)
[2022-08-23] MEDS ORDERED: FOLIC ACID INJECTION - 1 MG, THIAMINE HCL 200 MG, MULTIVIT INJECTION ADULT 10 ML in SOD... IVPB ONE (16:00)
[2022-08-23] MEDS: PANTOPRAZOLE SODIUM 40 MG VIAL IVPUSH SCH (16:15)
[2022-08-23 16:42] VITALS: BMI 19.7
[2022-08-23 17:06] LABS: ARTERIAL BLD GAS O2 SATURATION 99.5 % (95-98); ARTERIAL BLOOD GAS BASE EXCESS 0.7 mmol/L (-2-2); ARTERIAL BLOOD GAS PO2 254.8 mmHg (80-100); ARTERIAL BLOOD GAS pH 7.351 (7.350-7.450)
[2022-08-23 17:09] LABS: ALLENS TEST POSITIVE; VENT MODE A/C; VENT RATE 16
[2022-08-23] MEDS ORDERED: methaDONE HCL 10 MG TABLET (FOR DETOX USE ONLY) PO ONE (21:02)
[2022-08-23] MEDS ORDERED: CHLORHEXIDINE GLUCONATE 4% CLEANSER FOR DECOLONIZATION TP SCH (22:00)
[2022-08-23] MEDS: MUPIROCIN 2% TOPICAL OINTMENT FOR DECOLONIZATION NS SCH (22:25)
[2022-08-24] MEDS ORDERED: clonazePAM 0.5 MG TABLET PO ONE (07:00)
[2022-08-24 07:58] LABS: INR 1.01 (0.83-1.09); PROTHROMBIN TIME (PATIENT) 11.7 SEC (9.7-13.0)
[2022-08-24 08:01] LABS: ACTIVATED PTT 23.6 SECONDS (25.2-36.5)
[2022-08-24] MEDS ORDERED: diazePAM 5 MG TABLET PO PRN (08:05)
[2022-08-24] MEDS ORDERED: MAG HYDROX/AL HYDROX/SIMETH 30 ML UNIT-DOSE CUP PO PRN ×2 (08:07→16:29)
[2022-08-24] MEDS: ALBUTEROL SO4 2.5/IPRATROPIUM 0.5 INH SOL 3 ML VIAL.NEB. NEB PRN ×2 (08:15→08:48)
[2022-08-24] MEDS ORDERED: SODIUM CHLORIDE 1,000 ML IV SCH ×2 (08:15→16:29)
[2022-08-24 08:18] LABS: CHLORIDE 109 mmol/L (98-107); SODIUM 138 mmol/L (136-145)
[2022-08-24 08:32] LABS: ALBUMIN 3.5 g/dl (3.4-5.0); ANION GAP 3 MMOL/L (8-16); BLOOD UREA NITROGEN 23.9 mg/dL (7-18); CO2 26 mmol/L (21-32); CREATININE 0.9 mg/dL (0.55-1.3); MAGNESIUM 2.3 mg/dL (1.8-2.4); SGPT/ALT 27 U/L (13-61)
[2022-08-24 08:34] LABS: BILIRUBIN,TOTAL 0.6 mg/dL (0.2-1); SGOT/AST 44 U/L (15-37)
[2022-08-24] MEDS ORDERED: diazePAM CARPU-JECT 10 MG/2 ML DISP.SYRIN ONE (08:34)
[2022-08-24 08:35] LABS: ALK PHOS 171 U/L (45-117); TOT PROT 8.9 g/dl (6.4-8.2)
[2022-08-24 08:36] LABS: GLUCOSE,RANDOM 49 mg/dL (74-106)
[2022-08-24] MEDS ORDERED: LORazepam 2 MG/ML SDV VIAL IVPUSH ONE (08:45)
[2022-08-24] MEDS ORDERED: ACETAMINOPHEN 1000 MG/100 ML BAG IVPB ONE (08:51)
[2022-08-24 09:04] LABS: BASO % 1.2 % (0-2.0); EOS % 15.4 % (0-4.5); HEMATOCRIT 36.1 % (32.4-45.2); HEMOGLOBIN 11.5 GM/dL (10.7-15.3); LYMPH % 36.1 % (8-40); MCH 30.2 pg (25.7-33.7); MCHC 31.8 g/dl (32.0-36.0); MEAN CELL VOLUME 95.1 fl (80-96); MEAN PLT VOLUME 9.7 fl (7.5-11.1); MONO % 11.4 % (3.8-10.2); NEUT % 35.9 % (42.8-82.8); PLATELET COUNT 161 10^3/uL (134-434); RDW 15.5 % (11.6-15.6); WHITE BLOOD COUNT 6.3 K/mm3 (4.0-10.0)
[2022-08-24] MEDS: MULTIVITAMINS THER W-MINERALS COMBO TABLET (FP) PO SCH ×2 (09:11→09:24)
[2022-08-24] MEDS: THIAMINE HCL 100 MG TABLET (FP) PO SCH ×2 (09:11→09:24)
[2022-08-24] MEDS: PANTOPRAZOLE SODIUM 40 MG VIAL IVPUSH SCH (09:12)
[2022-08-24] MEDS: MUPIROCIN 2% TOPICAL OINTMENT FOR DECOLONIZATION NS SCH (09:12)
[2022-08-24] MEDS ORDERED: ENOXAPARIN NA (PORCINE) 40 MG/0.4 ML DISP.SYRIN SQ SCH (10:00)
[2022-08-24] MEDS ORDERED: diazePAM 5 MG TABLET PO SCH (11:00)
[2022-08-24] MEDS ORDERED: ALBUTEROL SO4 HFA INHALER IH PRN (12:55)
[2022-08-24] MEDS ORDERED: methylPREDNISolone NA SUCC 40 MG/1 ML VIAL IVPUSH SCH (13:00)
[2022-08-24] MEDS ORDERED: ALBUTEROL SO4 2.5/IPRATROPIUM 0.5 INH SOL 3 ML VIAL.NEB. NEB PRN (16:29)
[2022-08-24] MEDS: diazePAM 5 MG TABLET PO PRN ×2 (16:33→22:06)
[2022-08-24] MEDS ORDERED: CHLORHEXIDINE GLUCONATE 4% CLEANSER FOR DECOLONIZATION TP SCH (22:00)
[2022-08-24] MEDS ORDERED: MUPIROCIN 2% TOPICAL OINTMENT FOR DECOLONIZATION NS SCH (22:00)
[2022-08-24] MEDS ORDERED: THIAMINE HCL 100 MG TABLET (FP) PO SCH (22:00)
[2022-08-24] MEDS ORDERED: methaDONE HCL 10 MG TABLET PO ONE (22:15)
[2022-08-24 22:31] VITALS: RESP 18
[2022-08-25] MEDS ORDERED: methaDONE HCL 10 MG TABLET PO ONE ×2 (00:45→22:15)
[2022-08-25] MEDS ORDERED: methaDONE HCL 10 MG TABLET (FOR DETOX USE ONLY) PO SCH ×2 (06:00)
[2022-08-25] MEDS ORDERED: ACETAMINOPHEN 325 MG TABLET (FP) PO PRN (07:28)
[2022-08-25 09:29] LABS: BASO % 0.3 % (0-2.0); EOS % 5.6 % (0-4.5); HEMATOCRIT 28.7 % (32.4-45.2); HEMOGLOBIN 9.6 GM/dL (10.7-15.3); LYMPH % 44.8 % (8-40); MCH 31.1 pg (25.7-33.7); MCHC 33.4 g/dl (32.0-36.0); MEAN CELL VOLUME 92.9 fl (80-96); MEAN PLT VOLUME 8.3 fl (7.5-11.1); MONO % 11.3 % (3.8-10.2); PLATELET COUNT 154 10^3/uL (134-434); RBC 3.09 M/mm3 (3.60-5.2); RDW 14.5 % (11.6-15.6); WHITE BLOOD COUNT 3.7 K/mm3 (4.0-10.0)
[2022-08-25 09:38] VITALS: BP 130/48; PULSE 70; TEMP 97.8
[2022-08-25 09:55] LABS: BLOOD UREA NITROGEN 13.6 mg/dL (7-18)
[2022-08-25 09:56] LABS: MAGNESIUM 1.8 mg/dL (1.8-2.4)
[2022-08-25 09:58] LABS: CREATININE 0.7 mg/dL (0.55-1.3); PHOSPHOROUS 2.4 mg/dL (2.5-4.9)
[2022-08-25 09:59] LABS: TOT PROT 7.7 g/dl (6.4-8.2)
[2022-08-25 10:00] LABS: BILIRUBIN,TOTAL 0.7 mg/dL (0.2-1)
[2022-08-25] MEDS ORDERED: PANTOPRAZOLE SODIUM 40 MG VIAL IVPUSH SCH (10:00)
[2022-08-25] MEDS ORDERED: FOLIC ACID 1 MG TABLET (FP) PO SCH (10:00)
[2022-08-25] MEDS ORDERED: ENOXAPARIN NA (PORCINE) 40 MG/0.4 ML DISP.SYRIN SQ SCH (10:00)
[2022-08-25] MEDS ORDERED: MULTIVITAMINS THER W-MINERALS COMBO TABLET (FP) PO SCH (10:00)
[2022-08-26] MEDS ORDERED: diazePAM 5 MG TABLET PO SCH (06:00)
[2022-08-27] MEDS ORDERED: diazePAM 5 MG TABLET PO SCH (06:00)
[2022-08-28] MEDS ORDERED: diazePAM 5 MG TABLET PO ONE (06:00)
== END 2022-08-25 09:46 | disposition left against medical advice (07) | DRG 812 ==
LOC: JER 13:33 → JERBED 14:50 → JICU 17:19 → J7W 08-24 16:40
PROVIDERS: ADMIT Internal Medicine
PROC: 5A1935Z Respiratory Ventilation, Less than 24 Consecutive Hours (ICD-10-PCS; principal; 2022-08-23)
PROC: 0BH17EZ Insertion of Endotracheal Airway into Trachea, Via Natural or Artificial Opening (ICD-10-PCS; 2022-08-23)
DX: T42.4X1A Poisoning by benzodiazepines, accidental (unintentional), initial encounter (principal); F14.10 Cocaine abuse, uncomplicated; F19.10 Other psychoactive substance abuse, uncomplicated; J96.00 Acute respiratory failure, unspecified whether with hypoxia or hypercapnia; G92.8 Other toxic encephalopathy; F11.20 Opioid dependence, uncomplicated; J45.909 Unspecified asthma, uncomplicated; B19.20 Unspecified viral hepatitis C without hepatic coma; E86.0 Dehydration; R00.0 Tachycardia, unspecified; E16.2 Hypoglycemia, unspecified; Z53.29 Procedure and treatment not carried out because of patient's decision for other reasons; Y92.89 Other specified places as the place of occurrence of the external cause
CPT/HCPCS: 0241U-QW; 36415; 36600; 70450-TC; 71045-TC-FY; 80053; 80307; 81003; 82803; 82962; 83605; 83735; 84100; 84443; 84484; 84703; 85025; 85610; 85730; 86850; 86900; 86901; 87040; 93005; 93010; 94640; 99285-25

== ENCOUNTER 2022-12-27 11:49 | Inpatient (IN) | payer OTHER ==
[2022-12-27 13:47] VITALS: BMI 20.3
[2022-12-27] MEDS ORDERED: IBUPROFEN 400 MG TABLET (FP) PO PRN (15:37)
[2022-12-27] MEDS ORDERED: BENZONATATE 200 MG CAPSULE PO PRN (15:37)
[2022-12-27] MEDS ORDERED: ONDANSETRON *ODT* 4 MG TABLET SL PRN (15:37)
[2022-12-27] MEDS ORDERED: BENZOCAINE/MENTHOL (CHLORASEPTIC ) LOZENGE MM PRN (15:37)
[2022-12-27] MEDS ORDERED: NICOTINE 10 MG CARTRIDGE (INHALER) IH PRN (15:37)
[2022-12-27] MEDS ORDERED: DICYCLOMINE HCL 10 MG CAPSULE PO PRN (15:37)
[2022-12-27] MEDS ORDERED: NALOXONE HCL (KLOXXADO) 8 MG SPRAY NS PRN (15:37)
[2022-12-27] MEDS ORDERED: POLYETHYLENE GLYCOL (HEALTHYLAX) 3350 17 GM PACKET PO PRN (15:37)
[2022-12-27] MEDS ORDERED: LOPERAMIDE HCL 2 MG CAPSULE PO PRN (15:37)
[2022-12-27] MEDS ORDERED: MAG HYDROX/AL HYDROX/SIMETH 30 ML UNIT-DOSE CUP PO PRN (15:37)
[2022-12-27] MEDS ORDERED: NALOXONE HCL 0.4 MG/ML VIAL IM PRN (15:37)
[2022-12-27] MEDS ORDERED: BISMUTH SUBSALICYLATE 262 MG/15 ML BTL PO PRN (15:37)
[2022-12-27] MEDS ORDERED: ACETAMINOPHEN 325 MG TABLET (FP) PO PRN (15:37)
[2022-12-27] MEDS ORDERED: IBUPROFEN 600 MG TABLET (FP) PO PRN (15:37)
[2022-12-27] MEDS ORDERED: METHOCARBAMOL 500 MG TABLET PO PRN (15:37)
[2022-12-27] MEDS ORDERED: guaiFENesin 600 MG TABLET.ER (FP) PO PRN (15:37)
[2022-12-27] MEDS ORDERED: hydrOXYzine PAMOATE 25 MG CAPSULE (FP) PO PRN (15:37)
[2022-12-27] MEDS ORDERED: MAGNESIUM HYDROX 2400MG/30ML ORAL SUSPENSION 30 ML CUP PO PRN (15:37)
[2022-12-27] MEDS ORDERED: THIAMINE HCL 100 MG TABLET (FP) PO SCH (22:00)
[2022-12-27] MEDS ORDERED: MELATONIN 5 MG TABLETS PO SCH (22:00)
[2022-12-28] MEDS ORDERED: ALBUTEROL SO4 HFA INHALER IH PRN ×2 (05:44→09:21)
[2022-12-28] MEDS ORDERED: LORazepam 1 MG TABLET PO PRN (09:23)
[2022-12-28] MEDS ORDERED: methaDONE HCL 10 MG TABLET PO SCH (09:30)
[2022-12-28] MEDS ORDERED: BUDESONIDE/FORMETEROL FUMARATE 160/4.5 mcg INHALER IH SCH (10:00)
[2022-12-28] MEDS ORDERED: PRENATAL VITAMINS W/ FOLIC ACID TABLET (FP) PO SCH (10:00)
[2022-12-28] MEDS ORDERED: LORazepam 2 MG TABLET PO SCH (11:00)
[2022-12-28 11:45] LABS: HEMATOCRIT 30.9 % (32.4-45.2); HEMOGLOBIN 10.2 GM/dL (10.7-15.3); MCHC 33.1 g/dl (32.0-36.0); MEAN CELL VOLUME 90.7 fl (80-96); MEAN PLT VOLUME 9.1 fl (7.5-11.1); PLATELET COUNT 174 10^3/uL (134-434); RBC 3.41 M/mm3 (3.60-5.2); RDW 16.1 % (11.6-15.6); WHITE BLOOD COUNT 4.2 K/mm3 (4.0-10.0)
[2022-12-28 11:46] LABS: POTASSIUM 4.3 mmol/L (3.5-5.1)
[2022-12-28 11:49] LABS: ALBUMIN 3.1 g/dl (3.4-5.0); BLOOD UREA NITROGEN 13.1 mg/dL (7-18); CALCIUM 9.5 mg/dL (8.5-10.1)
[2022-12-28 11:52] LABS: CREATININE 0.7 mg/dL (0.55-1.3)
[2022-12-28 11:54] LABS: BILIRUBIN,TOTAL 0.6 mg/dL (0.2-1); TOT PROT 7.6 g/dl (6.4-8.2)
[2022-12-28 13:02] VITALS: BP 108/65; PULSE 60; RESP 14; TEMP 97.3
[2022-12-30] MEDS ORDERED: LORazepam 1 MG TABLET PO SCH (05:00)
[2022-12-31] MEDS ORDERED: LORazepam 0.5 MG TABLET PO PRN
[2022-12-31] MEDS ORDERED: LORazepam 0.5 MG TABLET PO SCH (05:00)
[2023-01-01] MEDS ORDERED: LORazepam 0.5 MG TABLET PO ONE (05:00)
== END 2022-12-28 13:52 | disposition left against medical advice (07) | DRG 770 ==
LOC: YASAS 11:49 → Y3N 16:42
PROVIDERS: ADMIT Allergy & Immunology; ATTEND Surgery
PROC: HZ2ZZZZ Detoxification Services for Substance Abuse Treatment (ICD-10-PCS; principal; 2022-12-27)
DX: F13.230 Sedative, hypnotic or anxiolytic dependence with withdrawal, uncomplicated (principal); F11.20 Opioid dependence, uncomplicated; F14.20 Cocaine dependence, uncomplicated; F12.20 Cannabis dependence, uncomplicated; F17.210 Nicotine dependence, cigarettes, uncomplicated; F31.9 Bipolar disorder, unspecified; F19.24 Other psychoactive substance dependence with psychoactive substance-induced mood disorder; J45.909 Unspecified asthma, uncomplicated
CPT/HCPCS: 36415; 80053; 85027; 86780; 87635